=== PATIENT | male | born 1960 | race Caucasian/White ===

== ENCOUNTER 2020-10-17 00:49 | Emergency (ER) | payer MEDICAID, OTHER ==
[~2020-10-17] VITALS: Ht 172.7 cm; Wt 118.0 kg
[~2020-10-17 00:49] MED LIST: DOXE150C MT; QUET200T29 MT; TRAZ150T78 MT
[2020-10-17 02:13] VITALS: BP 129/88
== END 2020-10-17 02:18 | disposition left against medical advice (07) ==
LOC: ER 01:30
DX: Z00.00 Encounter for general adult medical examination without abnormal findings (principal); F15.10 Other stimulant abuse, uncomplicated; I10 Essential (primary) hypertension
CPT/HCPCS: 99283